=== PATIENT | female | born 1975 | race Caucasian/White ===

== ENCOUNTER 2016-07-23 21:08 | Emergency (ER) | payer OTHER ==
[~2016-07-23] VITALS: Ht 165.1 cm; Wt 63.5 kg
[~2016-07-23 21:08] MED LIST: ASPIRIN81 M1 PO; NAPROSYN 500 M500 MG PO
--- NOTE | 2016-07-23 21:20 | ED GENERAL ADULT ---
History of Present Illness General Chief Complaint: Lower Extremity Problems Stated Complaint: LT LEG SWELLING Source: patient Exam Limitations: no limitations Vital Signs & Intake/Output Vital Signs & Intake/Output Vital Signs Date Time Temp Pulse Resp B/P Pulse O2 O2 Flow FiO2 Ox Delivery Rate 07/23 2245 Room Air 07/23 2241 95.8 78 20 112/64 99 Room Air ED Intake and Output 07/24 0000 07/23 1200 Intake Total Output Total Balance Patient 140 lb Weight Allergies Coded Allergies: NO KNOWN ALLERGIES (10/03/11) Reconcile Medications Oxycodone HCl/Acetaminophen (Percocet 5-325 MG Tablet) 5 MG-325 MG TABLET 1 TAB PO BID PRN PAIN Triage Nurses Notes Reviewed? yes Onset: Abrupt Duration: hour(s): Timing: recent history HPI: 07/23/16 LEFT LEG SWELLING This is a 41-year-old female who presents to the emergency department for left calf pain and swelling. The patient states that she has traumatic injury of the left lower extremity 25 years ago. She says her popliteal artery was lacerated. She is status post vascular surgery. She subsequently developed the occlusion and underwent a left femoropopliteal bypass by Dr. Kidd in 2013 She currently is cared for by Dr. Ngo. She saw him this week, had an ultrasound, negative for DVT. She was scheduled for an MRI of the left lower extremity today, but was not able to tolerate the procedure secondary to pain. She is scheduled for an angiogram later this week .She also had severe anxiety while in the MRI. She is concerned about the possibility of a blood clot as the swelling to her left calf seems to have increased. Past medical history taken from the old record listed below includes: 1) anxiety, previously prescribed xanax but has not taken in over 4-5 yrs 2) traumatic rupture of LLE artery, s/p repair ~25 yrs ago with subsequent failure and repair in with l leg fem pop bypass w/saphenous vein reversal by Dr. Salguero (vascular surgery, 2013). She has been on antibx regimen for this before, none currently, and follows with Dr. Salguero's successor, Dr. Hoff. Her condition has been complicated by peripheral neuropathy, treated by Dr. Rees (neurology) w/gabapentin, lidocaine patch although she has not seen him recently. She has no known hx of diabetes. The onset of the symptoms were abrupt, the duration of her leg pain and swelling is been ongoing, however there was increased swelling according to the patient today. Past History Travel History Traveled to [place] past 21 day No Medical History Any Pertinent Medical History? see below for history Neurological: peripheral neuropathy Musculoskeletal: traumatic injury to the left lower extremity Tetanus Vaccine: 12/15/12 Surgical History Surgical History: LEFT LOWER EXTREMITY FEMOROPOPLITEAL BYPASS Psychosocial History Who do you live with Family Services at Home None What is your primary language Persian Family History Family History, If Any: Relation not specified for: FH: breast cancer FH: diabetes mellitus FH: myocardial infarction Hx Contributory? No Review of Systems Review of Systems Constitutional: Denies: fever. EENTM: Denies: visual changes. Respiratory: Denies: short of breath. Cardiovascular: Denies: chest pain. GI: Denies: abdominal pain. Genitourinary: Reports: no symptoms. Musculoskeletal: Reports: no symptoms. Skin: Reports: no symptoms. Neurological/Psychological: Reports: no symptoms. Hematologic/Endocrine: Denies: bleeding. Physical Exam Physical Exam General Appearance: alert, awake, anxious, mild distress Head: atraumatic, normal appearance Eyes: Bilateral: normal appearance, PERRL, EOMI. Ears, Nose, Throat: normal pharynx, normal ENT inspection Neck: normal inspection, supple, full range of motion Respiratory: normal breath sounds, chest non-tender Cardiovascular: regular rate/rhythm, edema Peripheral Pulses: 4+ dorsalis pedis (R), 4+ dorsalis pedis (L) Gastrointestinal: non-tender Back: normal range of motion Extremities: swelling, tenderness Neurologic/Psych: no motor/sensory deficits, awake, alert, oriented x 3 Skin: intact, normal color, warm/dry Comments: Physical exam is significant for left calf swelling. Dorsiflexion and dorsi extension to the left foot are intact. The left and the right foot were compared in color there were both equal. Capillary refill to all the toes of the left foot were less than 2 seconds. Her left foot dorsalis pedis pulse was 4+. She had multiple scars to the left lower extremity. She has tenderness to the calf on the left. Core Measures ACS in differential dx? No CVA/TIA Diagnosis: No Severe Sepsis Present: No Septic Shock Present: No Progress Differential Diagnoses I considered the following diagnoses in my evaluation of the patient: [DVT, popliteal cyst, ruptured aneurysm, peripheral vascular disease, arterial occlusion, neuropathy, gastric name is muscle injury, click migration from MRI] Plan of Care: Follow-up with Dr. Ngo, this week. Return to the emergency department immediately, if pain worse, or color change to the left lower extremity. Initial ED EKG: none Departure Departure Disposition: HOME OR SELF CARE Condition: Stable Clinical Impression Primary Impression: Peripheral vascular disease Secondary Impressions: Leg swelling Referrals: GANESH PULIDO MD (PCP/Family) Departure Forms: Customer Survey General Discharge Information Prescriptions: Current Visit Scripts Oxycodone HCl/Acetaminophen (Percocet 5-325 MG Tablet) 1 TAB PO BID PRN PAIN #10 TAB Comments 07/23/16 The patient was reevaluated. I discussed the case in detail and the ultrasound findings with her vascular surgeon Dr. Ngo. He is in agreement with the plan. Percocet for pain, she will obtain the angiogram as an outpatient as scheduled. She also has follow-up with an orthopedist. She says that Dr. Ngo Had researched the the clips in her leg and verified there were no issues related to the MRI. The left lower extremity is no ecchymosis. Excellent dorsalis pedis pulse. Ultrasound is negative for DVT. Critical Care Note Critical Care Note Critical Care Time: non-applicable
--- NOTE | 2016-07-23 22:26 | ULTRASOUND REPORT ---
EXAMINATION: US LOWER EXTREMITY VENOUS, LEFT CLINICAL INFORMATION: Edema. COMPARISON: None. TECHNIQUE: Doppler spectral analysis and color flow Doppler imaging was performed of the left lower extremity. Compression and augmentation maneuvers were performed. FINDINGS: Lower extremity venous ultrasound demonstrates no evidence of DVT. The common femoral, femoral, popliteal and calf veins were well-identified and normal. They demonstrate normal compressibility and color fill-in. No popliteal cyst. IMPRESSION: No evidence for a lower extremity deep vein thrombosis.
[2016-07-23 22:42] VITALS: BP 112/64
[2016-07-24] MEDS ORDERED: PERCOCET 5-3251 EACH PO (00:03)
== END 2016-07-24 00:59 ==
LOC: ERH 21:08
DX: I73.9 Peripheral vascular disease, unspecified (principal); M79.89 Other specified soft tissue disorders